=== PATIENT | female | born 1950 | race Caucasian/White ===

== ENCOUNTER 2022-08-06 04:51 | Inpatient (IN) | payer MEDICARE, BC ==
[~2022-08-06] VITALS: Ht 155.6 cm; Wt 68.0 kg
--- NOTE | 2022-08-06 05:25 | NUR ---
MIKERA 878 FROM HOME FOR C/O N/V X 2 DAYS. PATIENT IS ALERT, ANXIOUS. ABLE TO MAKE NEEDS KNOWN. PLACED COMFORTABLY IN BED. VITALS CHECKED.
[2022-08-06] MEDS ORDERED: ONDANSETRON HCL/PF 4 MG/2 ML VIAL IVP ONE (05:30)
[2022-08-06] MEDS ORDERED: IV NS 0.9% 1,000 ML BAG IV ONE ×2 (05:30→08:00)
--- NOTE | 2022-08-06 05:35 | NUR ---
PRESENTED TO THE ER FOR C/O N/A FOR THE PAST 2 DAYS. DENIED ANY PAIN AT THIS TIME. NO DIARRHEA. A, OX4. WAS ASSISTED TO ER BED 7 AND PLACED PT ON A MONITOR . NOTED WITH TACHYCARDIA. AWAITING FOR 'S OSBALDO
[2022-08-06] MEDS ORDERED: ONDANSETRON HCL/PF 4 MG/2 ML VIAL ONE (05:38)
--- NOTE | 2022-08-06 05:44 | NUR ---
IV JEREMÍAS G18 INSERTED ON LEFT AC. BLOOD DRAWN AND SENT TO LAB
--- NOTE | 2022-08-06 05:51 | NUR ---
PATIENT BEING ENCOURAGE TO PROVIDE URINE SAMPLE FOR URINALYSIS. PATIENT CLAIMED THAT SHE CANNOT DO IT AT THE MOMENT BECAUSE SHE IS NAUSEATED. SHE REQUESTED TO WAIT FOR AWHILE
--- NOTE | 2022-08-06 06:16 | NUR ---
EKG DONE AT BEDSIDE
[2022-08-06 06:26] LABS: BASOPHILS % (AUTO) 0.1 % (0.0-2.0); HEMATOCRIT 38 % (33-45); HEMOGLOBIN 12.3 g/dL (11.5-14.8); LYMPHOCYTES # (AUTO) 1.3 K/uL (0.8-4.8); MEAN CORPUSCULAR HGB CONC 32 g/dl (31.0-36.0); MEAN CORPUSCULAR VOLUME 85 fL (82-100); MONOCYTES # (AUTO) 1.3 K/uL (0.1-1.30); MONOCYTES % (AUTO) 10.3 % (2.0-12.0); NEUTROPHILS # (AUTO) 10.2 K/uL (1.8-8.9); NEUTROPHILS % (AUTO) 79.6 % (43.0-81.0); PLATELET COUNT (AUTO) 190 K/uL (150-450); RED BLOOD CELL COUNT(AUTO) 4.48 MIL/uL (4.0-5.2); WHITE BLOOD COUNT (AUTO) 12.9 K/uL (4.3-11.0)
[2022-08-06 06:55] LABS: CALCIUM, SERUM 9.5 mg/dL (8.5-10.1); CREATININE 0.9 mg/dL (0.6-1.3); POTASSIUM 4.5 mmol/L (3.5-5.1)
[2022-08-06 06:58] LABS: ALBUMIN 3.1 g/dL (3.4-5.0); BILIRUBIN,DIRECT 0.1 mg/dL (0.0-0.2); BILIRUBIN,TOTAL 0.7 mg/dL (0.2-1.0); TOTAL PROTEIN, SERUM 7.5 g/dL (6.4-8.2)
--- NOTE | 2022-08-06 07:10 | NUR ---
REPORT GIVEN TO PRUDENCIO CABRERA
--- NOTE | 2022-08-06 07:41 | NUR ---
COVID SWAB DONE AND SENT TO THE LAB
--- NOTE | 2022-08-06 07:41 | NUR ---
THE PATIENT IS RECEIVED IN ROOM AIR SATING AT 91%. THE PATIENT IS PLACED ON OXYGEN AT 2L/MIN VIA NC AND SATURATION LEVEL IMPROVED TO 96%. ALSO, NOTED ORAL TEMP 100.5F. DR GALO MADE AWARE.
[2022-08-06] MEDS ORDERED: ACETAMINOPHEN ES 500 MG TABLET ONE (07:45)
[2022-08-06] MEDS ORDERED: ACETAMINOPHEN ES 500 MG TABLET PO ONE (08:00)
[2022-08-06] MEDS ORDERED: LEVOFLOXACIN 750 MG /D5W 150ML 150 ML IV ONE (08:00)
--- NOTE | 2022-08-06 08:23 | NUR ---
PAGED [employer] FOR PEER TO PEER PRESENTATION. AWAITING CALL BACK FROM CHIDI MULLIGAN
--- NOTE | 2022-08-06 08:39 | NUR ---
BED 103, NURSE CLAY. ADMITTING MADE AWARE
[2022-08-06 09:10] LABS: BILIRUBIN,URINE NEGATIVE (NEGATIVE); COLOR,URINE YELLOW (YELLOW); LEUKOCYTE ESTERASE ,URINE 3+ (NEGATIVE); NITRITE, URINE NEGATIVE (NEGATIVE); PH,URINE 7.5 (5.0-8.0); PROTEIN,URINE 1+ mg/dl (NEGATIVE); UGLUCOSE NEGATIVE (NEGATIVE); UROBILINOGEN,URINE 0.2 EU/dL (0.2)
[2022-08-06 09:21] LABS: WBC,URINE TOO NUMEROUS TO COUN /HPF (0-3)
[2022-08-06 09:22] LABS: BACTERIA,URINE Moderate /HPF (None Seen); SQUAMOUS EPITHELIAL CELL,UR Few /HPF (None Seen)
--- NOTE | 2022-08-06 09:22 | NUR ---
REPORT GIVEN TO NURSE CLAY FOR CATHLEEN
--- NOTE | 2022-08-06 09:50 | NUR ---
THE PATIENT IS MOVED TO ROOM 103 IN STABLE CONDITION AND PER ACLS POLICY.
--- NOTE | 2022-08-06 09:55 | NUR ---
HEATING UNIT MECHANICFRUIT GRADER OPERATOR NOTE (RACHELLE DAY SHIFT) Patient arrived via gurney from the ED at 9:48 AM. Patient is alert and oriented x 4, denying pain, nausea, nor vomiting at the moment. Oriented patient to room, bed controls, call cox/light, and safety protocols. Safety fall precautions maintained with: bed with brakes locked on; bed in lowest position; bed alarm on; three bed side rails up; and call cox/light with bed side table within easy reach of patient. Telementry shows SR in 90s HR range. Will continue to monitor and care for patient per hospitalist's POC.
[2022-08-06] MEDS ORDERED: ONDANSETRON HCL/PF 4 MG/2 ML VIAL IVP PRN (10:00)
[2022-08-06] MEDS ORDERED: MAGNESIUM HYDROXIDE 30 ML UDC PO PRN (10:00)
[2022-08-06] MEDS: ENOXAPARIN SODIUM 40 MG/0.4 ML DISP.SYRIN SQ SCH (10:00)
[2022-08-06] MEDS ORDERED: HYDROCODONE/APAP 5/325MG TABLET PO PRN (10:00)
[2022-08-06] MEDS ORDERED: THYR30TA2 PO (10:12)
[2022-08-06] MEDS ORDERED: LIOT25TA13 PO (10:12)
[2022-08-06] MEDS ORDERED: PROGESTERONE TD (10:12)
[2022-08-06] MEDS: IV NS 0.9% 1,000 ML IV PRN (11:40)
[2022-08-06 12:00] VITALS: BP 122/72
[2022-08-06] MEDS: ACETAMINOPHEN 325 MG TABLET PO PRN (16:04)
--- NOTE | 2022-08-06 19:30 | NUR ---
SURVEILLANCE TECHNICIAN OPENING NOTES - RECEIVED PATIENT RESTING, HOB IN SEMI-VAUGHN'S. A/O X4. BREATHING EVEN AND NON-LABORED. ON O2 AT 2LPM VIA NASAL CANULA. DENIES PAIN, SOB, , NAUSEA OR VOMITING AT THIS TIME. ON TELE MONITOR READING SINUS RHYTHM AT 89 BPM. HAS LEFT ANTECUBITAL IV ACCESS #18G WITH NS RUNNING AT 75 ML/HR. NO S/S OF INFILTRATION NOTED. SAFETY PRECAUTIONS IN PLACE: BED LOCKED AND IN LOW POSITION, SIDE RAILS UP X2, CALL LIGHT WITHIN REACH. WILL CONTINUE PLAN OF CARE.
[2022-08-06 20:00] VITALS: BP 131/62
[2022-08-06] MEDS: LEVOFLOXACIN 500 MG /D5W 100ML 500 MG in PREMIX 1 EA IV SCH (20:25)
[2022-08-07] VITALS: BP 143/78
--- NOTE | 2022-08-07 01:00 | NUR ---
BLADDER SCAN SHOWED 336 ML URINE RETENTION. STRAIGHT CATHETER DONE, DRAINED 250 ML OF CLEAR YELLOW URINE.
[2022-08-07] MEDS: IV NS 0.9% 1,000 ML IV PRN ×2 (02:28→15:22)
[2022-08-07 04:00] VITALS: BP 148/80
[2022-08-07] MEDS: ACETAMINOPHEN 325 MG TABLET PO PRN ×3 (04:08→23:05)
--- NOTE | 2022-08-07 04:10 | NUR ---
NOTED WITH TEMP OF 100.4, PRN TYLENOL 650MG GIVEN. TOLERATED WELL.
[2022-08-07 05:50] LABS: BASOPHILS % (AUTO) 0.1 % (0.0-2.0); EOSINOPHILS % (AUTO) 0.1 % (0.0-6.0); HEMATOCRIT 32 % (33-45); HEMOGLOBIN 10.3 g/dL (11.5-14.8); LYMPHOCYTES # (AUTO) 2.4 K/uL (0.8-4.8); MEAN CORPUSCULAR HGB CONC 32 g/dl (31.0-36.0); MEAN CORPUSCULAR VOLUME 85 fL (82-100); MONOCYTES # (AUTO) 1.1 K/uL (0.1-1.30); MONOCYTES % (AUTO) 11.2 % (2.0-12.0); NEUTROPHILS # (AUTO) 6.5 K/uL (1.8-8.9); NEUTROPHILS % (AUTO) 64.6 % (43.0-81.0); PLATELET COUNT (AUTO) 187 K/uL (150-450); RED BLOOD CELL COUNT(AUTO) 3.76 MIL/uL (4.0-5.2); WHITE BLOOD COUNT (AUTO) 10.1 K/uL (4.3-11.0)
[2022-08-07 06:13] LABS: CALCIUM, SERUM 8.6 mg/dL (8.5-10.1); CARBON DIOXIDE 24 mmol/L (21-32); CHLORIDE 104 mmol/L (98-107); CREATININE 0.9 mg/dL (0.6-1.3); GLUCOSE 146 mg/dL (74-106); MAGNESIUM 2.1 mg/dL (1.8-2.4); PHOSPHORUS 1.9 mg/dL (2.5-4.9); POTASSIUM 4.5 mmol/L (3.5-5.1); SODIUM SERUM 135 mmol/L (136-145); UREA NITROGEN, BLOOD 7 mg/dL (7-18)
--- NOTE | 2022-08-07 06:50 | NUR ---
EXCELLENCE COACH CLOSING NOTES - PATIENT SLEEPING, EASY TO AROUSE. ABLE TO VERBALIZE NEEDS. NO SOB OR NOTED, TOLERATING ROOM AIR WELL. NO C/O PAIN OR DISCOMFORT. TELE MONITOR SHOWS SINUS RHYTHM AND SINUS TACHYCARDIA AT 80-110 BPM. LEFT ANTECUBITAL IV ACCESS INTACT, PATENT AND FLUSHING. ON PUREWICK CONNECTED TO CONTINUOUS SUCTION DRAINING CLEAR YELLOW URINE. STRICT ASPIRATION PRECAUTIONS OBSERVED. OFFLOADED BUTTOCKS. NEEDS ASSISTANCE WITH ADLS. ALL DUE MEDS GIVEN AND NEEDS ATTENDED. SAFETY PRECAUTIONS MAINTAINED. WILL ENDORSE TO AM RN FOR CATHLEEN.
--- NOTE | 2022-08-07 07:00 | NUR ---
FLIGHT AGENT OPENING NOTES: RECEIEVED PT IN BED ASLEEP, EASILY AROUSED WITH STIMULI. A/O X 4 AND ABLE TO MAKE NEEDS KNOWN, NO SOB OR CARDIAC DISTRESS NOTED. ON TELE MONITOR WITH CURRENT READING OF SINUS RHYTHM @78 BPM. NOTED WITH IV ACCESS ON LAC GAUGE 18, PATENT INTACT AND INFUSING NS @75ML/HR. PUREWICK NOTED DRAINING CLEAR YELLOW COLORED URINE ATTACHED TO INTERMITTED WALL SUCTION. SAFETY MEASURES MAINTAINED: BED LOCKED AND IN LOWEST POSITION, SIDE RIALS UP X 2. CALL LIGHT IN EASY REACH AND WILL MONITOR PT ACCORDINGLY.
[2022-08-07] MEDS: PANTOPRAZOLE 40 MG TABLET.DR PO SCH (07:22)
[2022-08-07] MEDS: LIOTHYRONINE SODIUM (25 MCG) 25 MCG TABLET PO SCH (07:22)
[2022-08-07 08:00] VITALS: BP 146/71
[2022-08-07] MEDS: ENOXAPARIN SODIUM 40 MG/0.4 ML DISP.SYRIN SQ SCH (08:22)
--- NOTE | 2022-08-07 08:22 | NUR ---
PATIENT REFUSED ENOXAPARIN, EXPLAINED THE RISK AND BENEFITS OF REFUSING BLOOD THINNER, PATIENT VERBALIZED UNDERSTANDING.
[2022-08-07] MEDS ORDERED: K PHOS NEUTRAL 250 MG TABLET PO ONE (08:30)
--- NOTE | 2022-08-07 09:00 | NUR ---
RN NOTES: PVR CHECKED 74 ML NO NEED. NO INTERVENTION MADE.
--- NOTE | 2022-08-07 09:15 | NUR ---
RN NOTES: ATTACHED TO DVT PUMP.
[2022-08-07] MEDS: THYROID 30 MG TABLET PO SCH (09:26)
[2022-08-07 13:00] VITALS: BP 139/72
--- NOTE | 2022-08-07 15:46 | NUR ---
RN NOTES: PT HAD LOW GRADE FEVER, TYLENOL 650 MG/TAB PO GIVEN, ENCOURAGED PT TO INCREASE FLUID INTAKE, OFFERED TSB PT DECLINED. WILL MONITOR PT ACCORDINGLY. Addendum: 08/07/22 at 1552 by TYRELL GONZALEZ RN ERROR, INCOMPLETE DOCS.
--- NOTE | 2022-08-07 15:46 | NUR ---
RN NOTES: PT HAD LOW GRADE FEVER 100.1 F, TYLENOL 650 MG/TAB PO GIVEN, ENCOURAGED PT TO INCREASE FLUID INTAKE, OFFERED TSB PT DECLINED. WILL MONITOR PT ACCORDINGLY.
[2022-08-07 16:00] VITALS: BP 134/78
--- NOTE | 2022-08-07 16:30 | NUR ---
RN NOTES: RECHECKED TEMP 98.7F.
--- NOTE | 2022-08-07 17:20 | NUR ---
RN NOTES: PVR 89 ML. NO INTERVENTION NEEDED.
--- NOTE | 2022-08-07 18:42 | NUR ---
FIRE FIGHTERS DISPATCHER CLOSING NOTES: PATIENT IN BED AWAKE A/O X 4 AND ABLE TO MAKE NEEDS KNOWN, NO SOB OR CARDIAC DISTRESS NOTED. ON ROOM AIR AND TOLERATING WELL. NOTED WITH IV ACCESS ON LAC GAUGE 18, PATENT INTACT AND INFUSING NS @75ML/HR. PUREWICK NOTED DRAINING CLEAR YELLOW COLORED URINE ATTACHED TO INTERMITTED WALL SUCTION. BLADDER SCAN Q 8HRS. SAFETY MEASURES MAINTAINED: BED LOCKED AND IN LOWEST POSITION, SIDE RIALS UP X 2. CALL LIGHT IN EASY REACH. DUE AND AVAILABLE MEDS GIVEN. WILL ENDORSE TO CHILDHOOD DEVELOPMENT TEACHER NURSE FOR CONTINUITY OF CARE.
[2022-08-07] MEDS: LEVOFLOXACIN 500 MG /D5W 100ML 500 MG in PREMIX 1 EA IV SCH (19:25)
--- NOTE | 2022-08-07 19:30 | NUR ---
MS RN OPENING NOTE RECEIVED PATIENT FROM AM NURSE; PATIENT AWAKE IN BED, A/O X 4, ABLE TO MAKE NEEDS KNOWN; STABLE ON ROOM AIR, BREATHING EVENLY AND NO S/S OF DISTRESS NOTED; WITH IV ACCESS AT LAC G#18 INFUSING WITH NORMAL SALINE AT 75 ML/HR; WITH PUREWICK IN PLACE; ENCOURAGED VERBALIZATION OF NEEDS; SAFETY MEASURES IMPLEMENTED, BED LOCKED IN LOWEST POSITION, SIDE RAILS UP X 2, CALL LIGHT AND TABLE WITHIN REACH; WILL CONTINUE TO MONITOR THROUGHOUT SHIFT
[2022-08-07 21:00] VITALS: BP 143/79
--- NOTE | 2022-08-07 23:30 | NUR ---
MS RN NOTE PVR DONE: 96ML. NO INTERVENTION NEEDED. WILL CONTINUE TO MONITOR
[2022-08-08] MEDS: IV NS 0.9% 1,000 ML IV PRN (04:09)
[2022-08-08 05:00] VITALS: BP 155/100
--- NOTE | 2022-08-08 05:01 | NUR ---
MS RN NOTE PVR DONE: 164ML. PATIENT HAD 2 FULLY SOAKED DIAPERS, 1 BOWEL MOVEMENT, 200 ML OF URINE VIA PUREWICK. NO INTERVENTION NEEDED. WILL CONTINUE TO MONITOR
[2022-08-08 05:54] LABS: BASOPHILS % (AUTO) 0.2 % (0.0-2.0); EOSINOPHILS % (AUTO) 0.7 % (0.0-6.0); HEMATOCRIT 35 % (33-45); HEMOGLOBIN 11.3 g/dL (11.5-14.8); LYMPHOCYTES # (AUTO) 2.4 K/uL (0.8-4.8); LYMPHOCYTES % (AUTO) 28.4 % (20.0-44.0); MEAN CORPUSCULAR HGB CONC 32 g/dl (31.0-36.0); MEAN CORPUSCULAR VOLUME 85 fL (82-100); MONOCYTES # (AUTO) 0.9 K/uL (0.1-1.30); NEUTROPHILS # (AUTO) 5.2 K/uL (1.8-8.9); NEUTROPHILS % (AUTO) 60.7 % (43.0-81.0); PLATELET COUNT (AUTO) 220 K/uL (150-450); RED BLOOD CELL COUNT(AUTO) 4.12 MIL/uL (4.0-5.2); WHITE BLOOD COUNT (AUTO) 8.5 K/uL (4.3-11.0)
[2022-08-08 06:26] LABS: CALCIUM, SERUM 9.7 mg/dL (8.5-10.1); CREATININE 0.8 mg/dL (0.6-1.3); PHOSPHORUS 3.1 mg/dL (2.5-4.9)
--- NOTE | 2022-08-08 06:52 | NUR ---
MS RN CLOSING NOTE PATIENT ASLEEP IN BED, A/O X 4, ABLE TO MAKE NEEDS KNOWN; STABLE ON ROOM AIR SATURATING 95-96%, BREATHING EVENLY AND NO S/S OF DISTRESS NOTED; WITH IV ACCESS AT LAC G#18 INFUSING WITH NORMAL SALINE AT 75 ML/HR; WITH PUREWICK IN PLACE DRAINING APPROXIMATELY 500ML WITH 2 FULLY SOAKED DIAPERS; ADMINISTERED MEDICATIONS PRESCRIBED; PATIENT'S NEEDS ATTENDED; NO COMPLAINTS OF PAIN AND DISCOMFORT AT THIS TIME; SAFETY MEASURES IMPLEMENTED, BED LOCKED IN LOWEST POSITION, SIDE RAILS UP X 2, CALL LIGHT AND TABLE WITHIN REACH; WILL ENDORSE TO AM NURSE FOR CATHLEEN.
--- NOTE | 2022-08-08 07:40 | NUR ---
MS RN OPENING NOTES: RECEIEVED PT IN BED ASLEEP, EASILY AROUSED WITH STIMULI. A/O X 4 AND ABLE TO MAKE NEEDS KNOWN, NO SOB NOR CARDIAC DISTRESS NOTED. PT HAS IV ACCESS ON LAC GAUGE 18, PATENT, INTACT, AND INFUSING NS @75ML/HR. BLANQUITAWIGELY NOTED DRAINING CLEAR YELLOW COLORED URINE ATTACHED TO LOW INTERMITTENT WALL SUCTION. SAFETY MEASURES MAINTAINED: BED LOCKED AND IN LOWEST POSITION, SIDE RIALS UP X 2. CALL LIGHT IN EASY REACH AND WILL MONITOR AND CARE FOR PATIENT PER HOSPITALIST'S POC.
[2022-08-08 08:00] VITALS: BP 128/78
[2022-08-08] MEDS: PANTOPRAZOLE 40 MG TABLET.DR PO SCH (08:12)
[2022-08-08] MEDS: LIOTHYRONINE SODIUM (25 MCG) 25 MCG TABLET PO SCH (08:12)
[2022-08-08] MEDS: THYROID 30 MG TABLET PO SCH (08:17)
[2022-08-08] MEDS: ENOXAPARIN SODIUM 40 MG/0.4 ML DISP.SYRIN SQ SCH (08:25)
[2022-08-08 13:00] VITALS: BP 123/60
[2022-08-08] MEDS ORDERED: LEVO500T90 PO (13:28)
[2022-08-08] MEDS ORDERED: ONDA4TAB11 PO (13:28)
[2022-08-08] MEDS ORDERED: LEVOFLOXACIN (250MG) 250 MG TABLET PO ONE (13:30)
--- NOTE | 2022-08-08 14:59 | NUR ---
MS CERTIFIED ORTHOTIC FITTER TO HOME NOTE (RACHELLE DAY SHIFT) Patient tolerated well the removal of the # 18 gauge PIV catheter fully intact from her left arm antecubital space without any signs of complications of IV therapy. Patient and patient's home theater experience expert, Sofía Corral, demonstrated understanding of her home care discharge instructions using the teach back method in her own words. Patient departed the [facility] at 14:52 hours today via wheelchair to private car bound for her home, accompanied by her home theater experience expert, Sofía Corral
== END 2022-08-08 15:17 | disposition home health service (06) | DRG 872 ==
LOC: ER 04:55 → TELE1 09:28 → MEDSG1 08-07 10:57
PROVIDERS: ADMIT Nurse Practitioner Family; ATTEND Nurse Practitioner Family
DX: A41.9 Sepsis, unspecified organism (principal); N39.0 Urinary tract infection, site not specified; E44.1 Mild protein-calorie malnutrition; E03.9 Hypothyroidism, unspecified; Z88.0 Allergy status to penicillin; N31.9 Neuromuscular dysfunction of bladder, unspecified; G35 Multiple sclerosis; Z96.642 Presence of left artificial hip joint; Z87.892 Personal history of anaphylaxis; Z79.899 Other long term (current) drug therapy; Z79.890 Hormone replacement therapy; E88.09 Other disorders of plasma-protein metabolism, not elsewhere classified; Z20.822 Contact with and (suspected) exposure to COVID-19; B96.89 Other specified bacterial agents as the cause of diseases classified elsewhere; Z90.49 Acquired absence of other specified parts of digestive tract; Z98.890 Other specified postprocedural states
CPT/HCPCS: 36415; 71045-TC; 80048-TC; 80076-TC; 81001; 82962-TC; 83605-TC; 83690-TC; 83735-TC; 84100-TC; 85025-TC; 85730-TC; 87040-TC; 87081-TC; 87086-TC; A4216; C9803; G0378; J1650; J1956; J2405; J7030; J7040